=== PATIENT | male | born 1945 | race Caucasian/White ===

== ENCOUNTER 2018-03-18 10:27 | Emergency (ER) | payer MEDICARE ==
[2018-03-18] MEDS: NACL 0.9% 500 ML 500 ML IV ONE ×2 (11:37→11:46)
--- NOTE | 2018-03-18 11:39 | Emergency Department Report ---
ED Allergic Reaction HPI - General Chief complaint: Allergic Reaction Stated complaint: ALERGIC REACTION TO MEDICATION Time Seen by Provider: 03/18/18 10:36 Source: EMS Mode of arrival: Stretcher Limitations: Language Barrier - History of Present Illness Initial Comments: Mr. Yo is a 72-year-old male who presents with allergic reaction. He awakened with hives and redness in arms and legs. He had diffuse itching. He had lip swelling. +difficulty swallowing. He called EMS. He received 0.3 epinephrine subcutaneous. Also received Benadryl and Solu-Medrol. New exposures include chicken soup prepared by home fire alarm installer. He also stated the chemical was being sprayed next door and adjacent apartment. It did cause some irritation. He only drinks coffee this morning. History obtained using language line certified court/medical interpreter French [id number] Complaint: hives, facial swelling, other (throat swelling) -: This morning Exposure: food, other (chemical) Symptoms: rash, itching, facial swelling, lip swelling, difficulty swallowing, hoarseness. denies: difficulty breathing, orolingual swelling, nausea, vomiting , abdominal pain Treatment Prior to Arrival: benadryl, epinephrine, steroids - Related Data Home Medications Medication Instructions Recorded Confirmed Last Taken Cephalexin [Keflex] 500 mg PO 05/05/13 05/05/13 Unknown Clindamycin 1% (Nf) [Clindamycin 1 applic TP BID 05/05/13 05/05/13 Unknown Topical] Gabapentin 300 mg PO 05/05/13 05/05/13 Unknown Lisinopril [Zestril] 20 mg PO QDAY 05/05/13 05/05/13 Unknown Tamsulosin [Flomax] 0.4 mg PO QDAY 05/05/13 05/05/13 Unknown Triamter/Hctz 37.5-25 mg 1 tab PO QDAY 05/05/13 05/05/13 Unknown [Maxzide-25] prednisoLONE ACETATE 1%(NF) [Pred 2 drops OP 05/05/13 05/05/13 Unknown Forte] rOPINIRole [Requip] 1 mg PO QHS 05/05/13 05/05/13 Unknown Previous Rx's Medication Instructions Recorded Last Taken Type Acyclovir [Zovirax Tab] 800 mg PO QID #28 tab 05/05/13 Unknown Rx Hydrocodone Bit/Acetaminophen 1 each PO Q6H PRN #30 tablet 05/05/13 Unknown Rx [Lortab 10-500 mg] HYDROcodone/APAP 5-325 [[place] 1 - 2 each PO Q6HR PRN #14 tablet 07/23/15 Unknown Rx 5/325] EPINEPHrine [Epipen] 0.3 mg IJ ONCE #1 auto.injct 03/18/18 Unknown Rx Famotidine 20 mg PO BID 3 Days #6 tablet 03/18/18 Unknown Rx diphenhydrAMINE [Benadryl CAP] 25 mg PO TID 3 Days #9 capsule 03/18/18 Unknown Rx predniSONE [Prednisone] 50 mg PO DAILY 3 Days #3 tablet 03/18/18 Unknown Rx Allergies Allergy/AdvReac Type Severity Reaction Status Date / Time No Known Allergies Allergy Unverified 05/05/13 12:39 ED Review of Systems ROS: Stated complaint: ALERGIC REACTION TO MEDICATION Other details as noted in HPI Comment: All other systems reviewed and negative Constitutional: denies: fever, malaise Respiratory: denies: cough Cardiovascular: denies: chest pain ED Past Medical Hx - Past Medical History Hx Hypertension: Yes Additional medical history: glaucoma, COPD, peripheral neuropathy - Social History Smoking Status: Never Smoker - Medications Home Medications: Home Medications Medication Instructions Recorded Confirmed Last Taken Type Acyclovir [Zovirax Tab] 800 mg PO QID #28 tab 05/05/13 Unknown Rx Cephalexin [Keflex] 500 mg PO 05/05/13 05/05/13 Unknown History Clindamycin 1% (Nf) [Clindamycin 1 applic TP BID 05/05/13 05/05/13 Unknown History Topical] Gabapentin 300 mg PO 05/05/13 05/05/13 Unknown History Hydrocodone Bit/Acetaminophen 1 each PO Q6H PRN #30 tablet 05/05/13 Unknown Rx [Lortab 10-500 mg] Lisinopril [Zestril] 20 mg PO QDAY 05/05/13 05/05/13 Unknown History Tamsulosin [Flomax] 0.4 mg PO QDAY 05/05/13 05/05/13 Unknown History Triamter/Hctz 37.5-25 mg 1 tab PO QDAY 05/05/13 05/05/13 Unknown History [Maxzide-25] prednisoLONE ACETATE 1%(NF) [Pred 2 drops OP 05/05/13 05/05/13 Unknown History Forte] rOPINIRole [Requip] 1 mg PO QHS 05/05/13 05/05/13 Unknown History HYDROcodone/APAP 5-325 [[place] 1 - 2 each PO Q6HR PRN #14 tablet 07/23/15 Unknown Rx 5/325] EPINEPHrine [Epipen] 0.3 mg IJ ONCE #1 auto.injct 03/18/18 Unknown Rx Famotidine 20 mg PO BID 3 Days #6 tablet 03/18/18 Unknown Rx diphenhydrAMINE [Benadryl CAP] 25 mg PO TID 3 Days #9 capsule 03/18/18 Unknown Rx predniSONE [Prednisone] 50 mg PO DAILY 3 Days #3 tablet 03/18/18 Unknown Rx ED Physical Exam - General Limitations: Language Barrier General appearance: alert, anxious - Head Head exam: Present: atraumatic, normocephalic - Eye Eye exam: Present: normal appearance - ENT ENT exam: Present: mucous membranes moist - Neck Neck exam: Present: normal inspection - Respiratory Respiratory exam: Present: normal lung sounds bilaterally. Absent: respiratory distress - Cardiovascular Cardiovascular Exam: Present: regular rate, normal rhythm, normal heart sounds. Absent: bradycardia, tachycardia, systolic murmur, diastolic murmur, rubs, gallop - GI/Abdominal GI/Abdominal exam: Present: soft, normal bowel sounds. Absent: distended, tenderness, guarding, rebound - Extremities Exam Extremities exam: Present: normal inspection - Back Exam Back exam: Present: normal inspection - Neurological Exam Neurological exam: Present: alert, oriented X3 - Psychiatric Psychiatric exam: Present: normal affect, anxious - Skin Skin exam: Present: warm, dry, intact, normal color, urticaria, other. Absent: rash - Other Other exam information: Urticaria involving arms faint redness on Lasix Right lower facial swelling involving the lips Normal tongue size No stridor Normal voice ED Course Vital Signs 03/18/18 03/18/18 03/18/18 10:37 10:41 10:46 Temperature 97.4 F L Pulse Rate 121 H 60 58 L Respiratory 22 16 18 Rate Blood Pressure 91/47 91/47 O2 Sat by Pulse 97 100 Oximetry 03/18/18 03/18/18 03/18/18 11:00 11:16 11:23 Temperature Pulse Rate 55 L 55 L Respiratory 16 16 14 Rate Blood Pressure 109/48 109/48 O2 Sat by Pulse 97 100 99 Oximetry 03/18/18 03/18/18 03/18/18 11:30 12:00 12:30 Temperature Pulse Rate 61 58 L 52 L Respiratory 18 18 15 Rate Blood Pressure 116/57 116/53 110/46 O2 Sat by Pulse 100 98 98 Oximetry 03/18/18 03/18/18 03/18/18 13:00 13:30 14:00 Temperature Pulse Rate 54 L 52 L 53 L Respiratory 16 15 16 Rate Blood Pressure 111/52 94/35 94/41 O2 Sat by Pulse 98 99 98 Oximetry 03/18/18 03/18/18 03/18/18 14:30 15:00 15:30 Temperature Pulse Rate 53 L 55 L 51 L Respiratory 15 17 15 Rate Blood Pressure 87/42 92/42 90/42 O2 Sat by Pulse 97 98 99 Oximetry 03/18/18 03/18/18 16:00 16:30 Temperature Pulse Rate 51 L 59 L Respiratory 13 18 Rate Blood Pressure 92/42 90/42 O2 Sat by Pulse 100 Oximetry ED Medical Decision Making - Medical Decision Making Mr. Yo presents with anaphylaxis with facial swelling throat swelling and urticaria. Blood pressure was low according to EMS and here in ED. Symptoms resolved after epinephrine second dose and appropriate medications. Repeat BP 103/51 upon discharge. Patient is ambulatory without general weakness. I do not suspect shock. I do suspect that he has low blood pressure readings with his antihypertensive medications. I have asked him to hold blood pressure medications for the next 3 days or until he can see his primary doctor. rx: epipen, prednisone, famotidine, benadryl Patient understands to call 911 if symptoms recur. Caregiver was able to provide further French interpretation upon discharge. Critical Care Time: Yes Critical care time in (mins) excluding proc time.: 40 Critical care attestation.: If time is entered above; I have spent that time in minutes in the direct care of this critically ill patient, excluding procedure time. 40 minutes of critical care time excluding procedures were used int he care of the patient. I was concerned for airway compromise and persistent hypotension. ED Disposition Clinical Impression: Anaphylaxis Disposition: DC-01 TO HOME OR SELFCARE Is pt being admited?: No Does the pt Need Aspirin: No (5. Right IM admitted) Condition: Stable Instructions: Anaphylaxis (ED) Prescriptions: diphenhydrAMINE [Benadryl CAP] 25 mg PO TID 3 Days #9 capsule EPINEPHrine [Epipen] 0.3 mg IJ ONCE #1 auto.injct Famotidine 20 mg PO BID 3 Days #6 tablet predniSONE [Prednisone] 50 mg PO DAILY 3 Days #3 tablet Referrals: PRIMARY CARE, [Primary Care Provider] - 3-5 Days Time of Disposition: 17:35
[2018-03-18] MEDS ORDERED: PEPCID IV ONE (11:42)
[2018-03-18] MEDS ORDERED: ADRENALINE P/F SUB-Q ONE (11:42)
[2018-03-18] MEDS ORDERED: ADRENALIN ONE (12:01)
[2018-03-18] MEDS ORDERED: NACL 0.9% 500 ML 500 ML IV ONE (15:18)
[2018-03-18] MEDS ORDERED: SOLU-Medrol IV ONE (15:40)
[2018-03-18] MEDS ORDERED: BENADRYL IV ONE (15:40)
[2018-03-18 18:10] LABS: Hematocrit 46.7 % (35.5-45.6); Hemoglobin 15.7 gm/dl (11.8-15.2); Mean Corpuscular HGB Conc 34 % (32-34); Mean Corpuscular Hemoglobin 32 pg (28-32); Mean Corpuscular Volume 96 fl (84-94); Platelet Count 166 K/mm3 (140-440); Red Blood Count 4.87 M/mm3 (3.65-5.03); Red Cell Distribution Width 14.9 % (13.2-15.2)
[2018-03-18 18:23] LABS: Calcium 8.6 mg/dL (8.4-10.2)
[2018-03-18 19:28] LABS: Total Cells Counted 100
[2018-03-18 19:29] LABS: Basophils % (Manual) 0 % (0.0-1.8); Eosinophils % (Manual) 0 % (0.0-4.3); Large Platelets 1+; Platelet Estimate Consistent w Auto; RBC Morphology Normal
[2018-03-18 19:41] VITALS: BP 103/51
== END 2018-03-18 20:23 | disposition home or self-care (01) ==
LOC: ED 10:27
DX: T78.2XXA Anaphylactic shock, unspecified, initial encounter (principal); I10 Essential (primary) hypertension; J44.9 Chronic obstructive pulmonary disease, unspecified; X58.XXXA Exposure to other specified factors, initial encounter; Y93.89 Activity, other specified; Y99.8 Other external cause status; Y92.039 Unspecified place in apartment as the place of occurrence of the external cause
CPT/HCPCS: 36415; 80048; 85007; 85025; 93005; 93010; 96372; 96374; 96375; 99291; J0171; J1200; J2930; J7040

== ENCOUNTER 2019-02-08 10:50 | Inpatient (IN) | payer MEDICARE ==
[2019-02-08] MEDS ORDERED: NACL 0.9% 500 ML 500 ML IV ONE (11:13)
[2019-02-08] MEDS ORDERED: NACL 0.9% 1000 ML 1,000 ML ONE (11:16)
[2019-02-08] MEDS ORDERED: ATROPINE 0.1% (CARDIAC) ONE (11:24)
[2019-02-08] MEDS: ATROPINE IV ONE ×2 (11:27→12:16)
[2019-02-08] MEDS ORDERED: CALCIUM CHLORIDE IV ONE (11:32)
[2019-02-08] MEDS ORDERED: NACL 0.9% 1000 ML IV ONE (11:33)
--- NOTE | 2019-02-08 11:38 | Emergency Department Report ---
- General Chief complaint: Skin Rash Stated complaint: RASH Time Seen by Provider: 02/08/19 11:30 Source: EMS Mode of arrival: Ambulatory Limitations: Altered Mental Status - History of Present Illness Initial comments: 73-year-old male presents to ED with complaint of poison rome rash to his upper and lower extremities since last night. Patient reported he has had a similar rash previously, and is currently taking Singulair and topical cream prescribed to him by his regular doctor. Patient found to be hypotensive and bradycardic in triage. Patient denies any previous history of any heart problems. Denies chest pain, shortness of breath, vomiting, fever. MD complaint: rash -: Last night Location: face, LUE, RUE, LLE, RLE Severity: mild Quality: other (itching) Consistency: constant Worsens with: none Context: other (poison rome) Associated symptoms: itching Treatments Prior to Arrival: OTC topical medication - Related Data Home Medications Medication Instructions Recorded Confirmed Last Taken Triamcinolone 0.1% [Kenalog 0.1% 1 - 2 applic TP PRN PRN 02/08/19 02/08/19 02/08/19 CREAM] Allergies Allergy/AdvReac Type Severity Reaction Status Date / Time No Known Allergies Allergy Verified 03/26/18 10:35 Abscess Boil HPI - HPI Chief Complaint: Altered Mental Status Stated Complaint: RASH Time Seen by Provider: 02/08/19 11:30 Home Medications: Home Medications Medication Instructions Recorded Confirmed Last Taken Triamcinolone 0.1% [Kenalog 0.1% 1 - 2 applic TP PRN PRN 02/08/19 02/08/19 02/08/19 CREAM] Allergies/Adverse Reactions: Allergies Allergy/AdvReac Type Severity Reaction Status Date / Time No Known Allergies Allergy Verified 03/26/18 10:35 ED Review of Systems ROS: Stated complaint: RASH Other details as noted in HPI Comment: All other systems reviewed and negative Constitutional: denies: chills, fever Respiratory: cough. denies: shortness of breath Cardiovascular: denies: chest pain Gastrointestinal: constipation. denies: abdominal pain, vomiting, diarrhea Skin: rash Neurological: weakness (generalized). denies: headache ED Past Medical Hx - Past Medical History Hx Hypertension: Yes Additional medical history: glaucoma, COPD, peripheral neuropathy - Surgical History Additional Surgical History: back surgery - Social History Smoking Status: Former Smoker Substance Use Type: None - Medications Home Medications: Home Medications Medication Instructions Recorded Confirmed Last Taken Type Triamcinolone 0.1% [Kenalog 0.1% 1 - 2 applic TP PRN PRN 02/08/19 02/08/19 02/08/19 History CREAM] ED Physical Exam - General Limitations: Altered Mental Status General appearance: alert, in no apparent distress - Head Head exam: Present: atraumatic, normocephalic - Eye Eye exam: Present: normal appearance, PERRL, EOMI - ENT ENT exam: Present: mucous membranes moist - Neck Neck exam: Present: normal inspection - Respiratory Respiratory exam: Present: normal lung sounds bilaterally. Absent: respiratory distress - Cardiovascular Cardiovascular Exam: Present: normal rhythm, bradycardia - GI/Abdominal GI/Abdominal exam: Present: soft. Absent: distended, tenderness - Extremities Exam Extremities exam: Present: normal inspection, full ROM - Neurological Exam Neurological exam: Present: alert, oriented X3, CN II-XII intact. Absent: motor sensory deficit - Psychiatric Psychiatric exam: Present: normal affect, normal mood - Skin Skin exam: Present: rash (urticarial rash to left forearm, bilateral thighs) ED Course Vital Signs 02/08/19 02/08/19 02/08/19 10:55 11:12 11:16 Temperature Pulse Rate 42 L Respiratory 37 H 11 L 14 Rate Blood Pressure 89/35 Blood Pressure 68/37 [Right] O2 Sat by Pulse 100 99 Oximetry 02/08/19 02/08/19 02/08/19 11:20 11:30 11:34 Temperature 97.3 F L Pulse Rate 34 L 66 70 Respiratory 20 10 L 16 Rate Blood Pressure Blood Pressure 89/38 206/95 [Right] O2 Sat by Pulse 100 100 100 Oximetry 02/08/19 02/08/19 11:47 12:28 Temperature 97.3 F L Pulse Rate 57 L Respiratory 16 Rate Blood Pressure Blood Pressure 232/97 [Right] O2 Sat by Pulse 100 Oximetry - Reevaluation(s) Reevaluation #1: 02/08/19 11:35 Pt presented to ED by EMS w/ complaint of poison rome rash. EMS reported normal vitals. Pt found to be hypotensive and bradycardic w/ HR ranging from 29 -40. Pt denies chest pain, cardiac, or renal issues. However, EKG shows peaked T waves ans sinus bradycardia. Given pt's bradycardia and hypotension, 1 amp of calcium and 1 mg atropine were given. HR improved to 60s, SBP improved to 140s. ED Medical Decision Making - Lab Data Result diagrams: 02/08/19 11:23 02/08/19 11:23 - EKG Data -: EKG Interpreted by Me EKG shows normal: sinus rhythm, axis, intervals, QRS complexes, ST-T waves Rate: bradycardia (rate 46) - EKG Data Interpretation: other (peaked T waves present) - Radiology Data Radiology results: report reviewed, image reviewed - Medical Decision Making 73-year-old male presented to ED with complaint of rash due to poison rome. Patient was found to be hypotensive, BP 60s/30s, and bradycardic with heart rate in the 30s, although it did get as low as 27. Initial EKG appeared to have peaked T waves, atropine and calcium chloride were given. However, patient has potassium of 4.4 in the blood work. I was later able to compare today's EKG to previous EKG from last year, EKG is unchanged, including T wave appearance. Patient will be admitted for symptomatic bradycardia. Troponin is normal. Patient also does not appear to be septic, as he is afebrile, normal WBCs, and normal lactic acid. The pressure has normalized and actually become hypertensive with IV fluid bolus and Atropine. Hydralazine 5 mg given for BP of 232/97. Pt will be admitted to the hospitalist, Dr Jin, for further workup. - Differential Diagnosis symptomatic bradycardia, anaphylaxis, sick sinus sydrome, sepsis Critical Care Time: Yes Critical care time in (mins) excluding proc time.: 35 Critical care attestation.: If time is entered above; I have spent that time in minutes in the direct care of this critically ill patient, excluding procedure time. Critical Care Time: 35 minutes ED Disposition Clinical Impression: Hypotension, Bradycardia, Urticaria Disposition: OP ADMIT IP TO THIS HOSP Is pt being admited?: Yes Condition: Stable Referrals: PRIMARY CARE,MD [Primary Care Provider] - 3-5 Days Time of Disposition: 12:31
[2019-02-08 11:39] LABS: Basophils % (Auto) 0.7 % (0.0-1.8); Eosinophils # (Auto) 0.2 K/mm3 (0.0-0.4); Eosinophils % (Auto) 4.5 % (0.0-4.3); Hematocrit 40.3 % (35.5-45.6); Hemoglobin 13.6 gm/dl (11.8-15.2); Lymphocytes # (Auto) 0.9 K/mm3 (1.2-5.4); Lymphocytes % (Auto) 22.7 % (13.4-35.0); Mean Corpuscular HGB Conc 34 % (32-34); Mean Corpuscular Volume 98 fl (84-94); Monocytes # (Auto) 0.5 K/mm3 (0.0-0.8); Monocytes % (Auto) 12.4 % (0.0-7.3); Platelet Count 106 K/mm3 (140-440); Red Blood Count 4.13 M/mm3 (3.65-5.03); Red Cell Distribution Width 13.8 % (13.2-15.2)
[2019-02-08 11:49] LABS: INR 1.29 (0.87-1.13)
[2019-02-08 11:56] LABS: Alanine Aminotransferase 272 units/L (7-56); BUN/Creatinine Ratio 15; Blood Urea Nitrogen 15 mg/dL (9-20); Hemolysis Index 3
[2019-02-08 12:03] LABS: Calcium 15.8 mg/dL (8.4-10.2)
[2019-02-08] MEDS ORDERED: BENADRYL IV ONE (12:11)
[2019-02-08] MEDS ORDERED: ATROPINE 0.1% (CARDIAC) IV ONE (12:14)
[2019-02-08] MEDS ORDERED: SOLU-Medrol IV ONE (12:19)
--- NOTE | 2019-02-08 12:23 | XRay Report ---
CHEST 1 VIEW 02/08/2019 11:30 AM INDICATION / CLINICAL INFORMATION: possible Sepsis. COMPARISON: None available. FINDINGS: SUPPORT DEVICES: None. HEART / MEDIASTINUM: Normal heart size. Atherosclerosis in the thoracic aorta. LUNGS / PLEURA: No significant pulmonary or pleural abnormality. No pneumothorax. ADDITIONAL FINDINGS: No significant additional findings. IMPRESSION: 1. No acute findings. Signer Name: Misbah Ibrahim MD Signed: 02/08/2019 12:18 PM Workstation Name: [id number]
[2019-02-08] MEDS ORDERED: APRESOLINE IV ONE (12:31)
--- NOTE | 2019-02-08 12:37 | History and Physical Report ---
History of Present Illness Chief complaint: I have a rash History of present illness: 73 YO Male with HTN, COPD, Glaucoma, Peripheral Neuropathy, Severe Malnutrition presents to ED for evaluation. Pt states that he has experienced a rash to his arms and legs that began last night. Pt treated himself with topical cream overnight with mild improvement in symptoms. Pt was found to by family members to have low blood pressure this morning. EMS notified, and upon arrival the patient was found to be hypotensive with systolic blood pressure of 68 mmhg, as well as bradycardia with heart rate in the 40's. Pt transported to [facility]. Pt seen and evaluated in ED and found to have the aforementioned symptoms as was treated with Atropine by ED physician. Pt symptoms improved with therapy. Pt acknowledges dypsnea on exertion, dypsnea at rest, decreased exercise tolerance. Pt denies fever, chills, CP, Palpitations, NVD, shortness of breath, BRBPR, Productive cough, recent ill contacts, or known history of heart disease. Pt found to have symptoms consistent with Diastolic CHF, Severe Malnutrition, Hypercalcemia, and Sick Sinus Syndrome. Pt admitted to telemetry. Cardiology consulted in ED. No prior admission for review. All listed medication reconciled at time of admission. Past History Past Medical History: COPD, hypertension, other (Glaucoma, Peripheral neuropathy) Past Surgical History: No surgical history, Other (reviewed) Social history: single, lives with family. denies: smoking, alcohol abuse, prescription drug abuse Family history: hypertension Medications and Allergies Allergies Allergy/AdvReac Type Severity Reaction Status Date / Time No Known Allergies Allergy Verified 03/26/18 10:35 Home Medications Medication Instructions Recorded Confirmed Last Taken Type Triamcinolone 0.1% [Kenalog 0.1% 1 - 2 applic TP PRN PRN 02/08/19 02/08/19 02/08/19 History CREAM] Review of Systems Constitutional: no weight loss, no weight gain, no fever, no chills Ears, nose, mouth and throat: no ear pain, no ear discharge, no tinnitis, no decreased hearing, no nose pain Cardiovascular: dyspnea on exertion, decreased exercise tolerance, other (Hypotension, bradycardia), no chest pain, no orthopnea, no palpitations, no syncope Respiratory: no cough, no cough with sputum, no excessive sputum, no hemoptysis Gastrointestinal: no nausea, no vomiting, no diarrhea, no constipation Genitourinary Male: no hematuria, no flank pain, no discharge, no urinary frequency, no urinary hesitancy Rectal: no pain, no incontinence, no bleeding Musculoskeletal: no neck stiffness, no neck pain, no shooting arm pain, no arm numbness/tingling, no low back pain, no shooting leg pain, no leg numbness/t ingling Integumentary: rash, pruritis, no redness, no sores, no wounds Neurological: no transient paralysis, no paralysis, no weakness, no parathesias, no numbness, no tingling Psychiatric: no anxiety, no memory loss, no change in sleep habits, no sleep disturbances, no insomnia, no change in appetite, no change in libido Endocrine: no cold intolerance, no heat intolerance, no polyphagia, no excessive thirst, no polydipsia Hematologic/Lymphatic: no easy bruising, no easy bleeding, no lymphadenopathy Allergic/Immunologic: no allergic rhinitis, no wheezing, no anaphylaxis Exam - Constitutional Vitals: Temp Pulse Resp BP Pulse Ox 97.3 F L 61 16 232/98 100 02/08/19 11:47 02/08/19 12:34 02/08/19 12:28 02/08/19 12:34 02/08/19 12:28 General appearance: Present: mild distress, cachectic - EENT Eyes: Present: PERRL ENT: hearing intact, clear oral mucosa - Neck Neck: Present: supple, normal ROM - Respiratory Respiratory effort: normal Respiratory: bilateral: CTA - Cardiovascular Rhythm: other (bradycardia) Heart Sounds: Present: S1 & S2. Absent: rub, click - Extremities Extremities: pulses symmetrical, No edema Peripheral Pulses: within normal limits - Abdominal General gastrointestinal: Present: soft, non-tender, non-distended, normal bowel sounds Male genitourinary: Present: normal - Integumentary Integumentary: Present: clear, warm, dry - Musculoskeletal Musculoskeletal: gait normal, strength equal bilaterally - Psychiatric Psychiatric: appropriate mood/affect, intact judgment & insight - Neurologic Neurologic: CNII-XII intact, moves all extremities Results - Labs CBC & Chem 7: 02/08/19 11:23 02/08/19 11:23 Labs: Abnormal lab results 02/08/19 02/08/19 02/08/19 Range/Units 11:23 11:23 11:23 WBC 3.8 L (4.5-11.0) K/mm3 MCV 98 H (84-94) fl MCH 33 H (28-32) pg Plt Count 106 L (140-440) K/mm3 Tillman % (Auto) 12.4 H (0.0-7.3) % Eos % (Auto) 4.5 H (0.0-4.3) % Lymph # 0.9 L (1.2-5.4) K/mm3 PT 15.8 H (12.2-14.9) Sec. INR 1.29 H (0.87-1.13) Chloride 112.5 H (98-107) mmol/L Glucose 103 H (75-100) mg/dL Calcium 15.8 H* (8.4-10.2) mg/dL AST 255 H (5-40) units/L ALT 272 H (7-56) units/L Total Protein 5.8 L (6.3-8.2) g/dL Albumin 3.0 L (3.9-5) g/dL Assessment and Plan - Patient Problems (1) Diastolic CHF Current Visit: Yes Status: Acute Qualifiers: Heart failure chronicity: acute Qualified Code(s): I50.31 - Acute diastolic (congestive) heart failure Plan to address problem: admit to telemetry, Echo, BNP, thyroid panel, magnesium level, cardiology consulted in ED, supplemental oxygen, chest x ray, (2) Severe malnutrition Current Visit: Yes Status: Acute Plan to address problem: Encourage increased protein intake, dietary supplementation. (3) Sick sinus syndrome Current Visit: Yes Status: Acute Plan to address problem: Cardiology consulted, thyroid panel, echo, telemetry monitoring, (4) Elevated LFTs Current Visit: Yes Status: Acute Plan to address problem: CT Abdomen/Pelvis, supportive care, hepatitis panel (5) Bradycardia Current Visit: Yes Status: Acute Plan to address problem: S/P atropine in ED, supportive care, admit to telemetry, (6) Hypotension Current Visit: Yes Status: Acute Plan to address problem: monitor bp q shift, supportive care. (7) Urticaria Current Visit: Yes Status: Acute Plan to address problem: topical benadryl, supportive care (8) DVT prophylaxis Current Visit: Yes Status: Acute Plan to address problem: SCD to BLE while in bed,
[2019-02-08] MEDS ORDERED: ZOFRAN IV PRN (13:48)
[2019-02-08] MEDS ORDERED: TYLENOL PO PRN (13:48)
[2019-02-08] MEDS ORDERED: PROVENTIL IH PRN (13:48)
[2019-02-08] MEDS ORDERED: SODIUM CHLORIDE FLUSH SYRINGE 10 ML IV PRN (13:48)
[2019-02-08 13:52] LABS: Bilirubin,Urine NEG (Negative); Blood,Urine SM (Negative); Color,Urine Straw (Yellow); Protein,Urine <15 mg/dL mg/dL (Negative); Urobilinogen,Urine < 2.0 mg/dL (<2.0)
[2019-02-08] MEDS ORDERED: BANOPHEN ANTI-ITCH TP PRN (13:52)
[2019-02-08 14:55] LABS: Free T4 (Free Thyroxine) 1.27 ng/dL (0.76-1.46)
--- NOTE | 2019-02-08 19:33 | Cat Scan Report ---
CT ABDOMEN AND PELVIS WITH CONTRAST INDICATION: liver disease. TECHNIQUE: Axial CT images were obtained through the abdomen and pelvis after 100 cc Omnipaque [address] scans at this location are performed using CT dose reduction for ALARA by means of automated exposure control. COMPARISON: None available. FINDINGS: This exam is limited secondary to moderate amount of respiratory motion artifact. LOWER CHEST: Heart is mildly enlarged. LIVER: No significant abnormality. GALLBLADDER: No significant abnormality. BILE DUCTS: No significant abnormality. PANCREAS: No significant abnormality. SPLEEN: No significant abnormality. ADRENALS: No significant abnormality. RIGHT KIDNEY and URETER: No significant abnormality. LEFT KIDNEY and URETER: No significant abnormality. STOMACH and SMALL BOWEL: No significant abnormality. COLON: No significant abnormality. APPENDIX: No significant abnormality. PERITONEUM: Trace amount of free pelvic fluid. No free air. No fluid collection. LYMPH NODES: No significant adenopathy. AORTA and ARTERIES: No significant abnormality. IVC and VEINS: No significant abnormality. URINARY BLADDER: Collapsed containing Galindo catheter. REPRODUCTIVE ORGANS: Enlarged heterogeneous prostate measuring 4.8 cm transversely. ADDITIONAL FINDINGS: None. SKELETAL SYSTEM: Moderate multilevel degenerative changes extending from L3 through S1. IMPRESSION: 1. No acute inflammatory process or bowel obstruction. 2. Enlarged heterogeneous prostate. Signer Name: Brian Kennedy MD Signed: 02/08/2019 7:29 PM Workstation Name: [email or web address]
[2019-02-08 22:08] LABS: Hepatitis B Surface Antigen Reactive (Negative); Hepatitis C Virus Antibody Non-Reactive (NonReactive)
[2019-02-08] MEDS: PEPCID PO SCH (22:16)
[2019-02-08] MEDS: SODIUM CHLORIDE FLUSH SYRINGE 10 ML IV SCH (22:25)
[2019-02-09 05:50] LABS: Albumin 3.3 g/dL (3.9-5); BUN/Creatinine Ratio 21; Blood Urea Nitrogen 17 mg/dL (9-20); Calcium 8.7 mg/dL (8.4-10.2); Hemolysis Index 107
[2019-02-09 07:19] LABS: Alanine Aminotransferase 275 units/L (7-56)
[2019-02-09] MEDS: PEPCID PO SCH ×2 (09:46→21:51)
[2019-02-09] MEDS: NACL 0.9% 1000 ML 1,000 ML IV SCH (09:47)
[2019-02-09] MEDS: SODIUM CHLORIDE FLUSH SYRINGE 10 ML IV SCH ×2 (09:47→21:51)
--- NOTE | 2019-02-09 11:19 | Consultation ---
History of Present Illness Consult date: 02/09/19 Consult reason: bradycardia History of present illness: This is a 73-year old [place] male with chronic hypertension who was brought in with altered mental status, found hypotensive and with marked bradycardia. Unable to obtain history due to language barrier. An ECG done shows sinus bradycardia with LVH and early repolarization. TSH is within normal limits. Potassium at 4.4. Home medication list the patient takes Clonidine 0.2mg twice daily. This has since been held. A cardiac consultation has been requested for further evaluation. Past History Social history: single, lives with family. denies: smoking, alcohol abuse, prescription drug abuse Family history: hypertension Medications and Allergies Allergies Allergy/AdvReac Type Severity Reaction Status Date / Time No Known Allergies Allergy Verified 03/26/18 10:35 Home Medications Medication Instructions Recorded Confirmed Last Taken Type Triamcinolone 0.1% [Kenalog 0.1% 1 - 2 applic TP PRN PRN 02/08/19 02/08/19 02/08/19 History CREAM] Spironolactone 0.2 mg PO BID 02/09/19 02/09/19 02/08/19 08:00 History cloNIDine 0.2 mg PO BID 02/09/19 02/09/19 02/08/19 08:00 History Active Meds: Active Medications Acetaminophen (Tylenol) 650 mg PO Q4H PRN PRN Reason: Pain MILD(1-3)/Fever >100.5/IRBY Albuterol (Proventil) 2.5 mg IH Q4HRT PRN PRN Reason: Shortness Of Breath Famotidine (Pepcid) 10 mg PO BID [facility] Last Admin: 02/09/19 09:46 Dose: 10 mg Documented by: Sodium Chloride (Nacl 0.9% 1000 Ml) 1,000 mls @ 42 mls/hr IV DIRECT [facility] Last Admin: 02/09/19 09:47 Dose: 42 mls/hr Documented by: Ondansetron HCl (Zofran) 4 mg IV Q8H PRN PRN Reason: Nausea And Vomiting Sodium Chloride (Sodium Chloride Flush Syringe 10 Ml) 10 ml IV BID [facility] Last Admin: 02/09/19 09:47 Dose: 10 ml Documented by: Sodium Chloride (Sodium Chloride Flush Syringe 10 Ml) 10 ml IV PRN PRN PRN Reason: LINE FLUSH Last Admin: 02/08/19 22:16 Dose: 10 ml Documented by: Zinc Acetate/Diphenhydramine (Banophen Anti-Itch) 1 applic TP Q6H PRN PRN Reason: Itching Physical Examination Vital Signs Pulse Resp BP Pulse Ox 42 L 37 H 68/37 100 02/08/19 10:55 02/08/19 10:55 02/08/19 10:55 02/08/19 10:55 General appearance: no acute distress HEENT: Positive: PERRL Neck: Positive: trachea midline Cardiac: Positive: Bradycardia Lungs: Positive: Normal Breath Sounds Neuro: Positive: Grossly Intact Abdomen: Positive: Soft Extremities: Absent: edema Results 02/08/19 11:23 02/09/19 04:36 Cardiac Enzymes 02/08/19 02/09/19 Range/Units 11:23 04:36 AST 255 H 212 H (5-40) units/L Coagulation 02/08/19 Range/Units 11:23 PT 15.8 H (12.2-14.9) Sec. INR 1.29 H (0.87-1.13) CBC 02/08/19 Range/Units 11:23 WBC 3.8 L (4.5-11.0) K/mm3 RBC 4.13 (3.65-5.03) M/mm3 Hgb 13.6 (11.8-15.2) gm/dl Hct 40.3 (35.5-45.6) % Plt Count 106 L (140-440) K/mm3 Lymph # 0.9 L (1.2-5.4) K/mm3 [place]ue # 0.5 (0.0-0.8) K/mm3 Eos # 0.2 (0.0-0.4) K/mm3 Baso # 0.0 (0.0-0.1) K/mm3 Comprehensive Metabolic Panel 02/08/19 02/09/19 Range/Units 11:23 04:36 Sodium 138 133 L (137-145) mmol/L Potassium 4.4 4.7 (3.6-5.0) mmol/L Chloride 112.5 H 104.9 (98-107) mmol/L Carbon Dioxide 24 17 L D (22-30) mmol/L BUN 15 17 (9-20) mg/dL Creatinine 1.0 0.8 (0.8-1.5) mg/dL Glucose 103 H 122 H (75-100) mg/dL Calcium 15.8 H* 8.7 D (8.4-10.2) mg/dL AST 255 H 212 H (5-40) units/L ALT 272 H 275 H (7-56) units/L Alkaline Phosphatase 62 74 (35-129) units/L Total Protein 5.8 L 7.0 D (6.3-8.2) g/dL Albumin 3.0 L 3.3 L (3.9-5) g/dL Assessment and Plan Hypotension -resolved, now hypertensive Marked Sinus bradycardia TSH WNL clonidine 0.2mg has been discontinued Recommendations: Optimal blood pressure management with HCTZ 25mg daily. Echocardiogram for LVEF assessment. Continue telemetry monitoring. Further evaluation depends on clinical course.
--- NOTE | 2019-02-09 16:33 | Progress Note ---
Assessment and Plan Assessment and plan: 73 yr old male patient with multiple medical problems was found to by family members to have low blood pressure this morning. EMS notified, and upon arrival the patient was found to be hypotensive with systolic blood pressure of 68 mmhg, as well as bradycardia with heart rate in the 40's. Pt seen and evaluated in ED and found to have the aforementioned symptoms as was treated with Atropine by ED physician. Pt symptoms improved with therapy. Pt acknowledges dypsnea on exertion, dypsnea at rest, decreased exercise Evaluated by cardiology (1) Diastolic CHF Current Visit: Yes Status: Acute continue antifailure medications Cardiology evaln noted and appreciated (2) Severe malnutrition Current Visit: Yes Status: Acute Encourage increased protein intake, dietary supplementation. supportive care (3) Sick sinus syndrome Current Visit: Yes Status: Acute Cardiology consulted, thyroid panel normal f/u echo, telemetry monitoring, (4) Elevated LFTs Current Visit: Yes Status: Acute Plan to address problem: CT Abdomen/Pelvis,enlarged prostate no other abnormality noted (5) Bradycardia Current Visit: Yes Status: Acute Plan to address problem: S/P atropine in ED, supportive care, admit to telemetry, (6) Hypotension Current Visit: Yes Status: Acute Plan to address problem: monitor bp q shift, supportive care. (7) Urticaria Current Visit: Yes Status: Acute Plan to address problem: topical benadryl, supportive care (8) DVT prophylaxis Current Visit: Yes Status: Acute Plan to address problem: SCD to BLE while in bed, Monitor closely and adjust the management as needed Disposition: Discharge when stable History Interval history: Patient seen and examined,medical records reviewed Patient c/o mild shortness of breath Denies chest pain Vitals reviewed Hospitalist Physical - Constitutional Vitals: Temp Pulse Resp BP Pulse Ox 97.7 F 64 16 183/53 100 02/09/19 08:23 02/09/19 12:18 02/09/19 12:18 02/09/19 12:18 02/09/19 12:18 General appearance: Present: no acute distress, cachectic, disheveled - EENT Eyes: Present: PERRL, EOM intact - Neck Neck: Present: supple, normal ROM - Respiratory Respiratory effort: normal Respiratory: bilateral: diminished, rales, negative: rhonchi, wheezing - Cardiovascular Rhythm: regular Heart Sounds: Present: S1 & S2 - Extremities Extremities: no ischemia, No edema - Abdominal General gastrointestinal: soft, non-tender, non-distended, normal bowel sounds - Integumentary Integumentary: Present: clear, warm - Psychiatric Psychiatric: appropriate mood/affect, cooperative - Neurologic Neurologic: moves all extremities Results - Labs CBC & Chem 7: 02/08/19 11:23 02/09/19 04:36 Labs: Laboratory Last Values WBC 3.8 K/mm3 (4.5-11.0) L 02/08/19 11:23 RBC 4.13 M/mm3 (3.65-5.03) 02/08/19 11:23 Hgb 13.6 gm/dl (11.8-15.2) 02/08/19 11:23 Hct 40.3 % (35.5-45.6) 02/08/19 11:23 MCV 98 fl (84-94) H 02/08/19 11:23 MCH 33 pg (28-32) H 02/08/19 11:23 MCHC 34 % (32-34) 02/08/19 11:23 RDW 13.8 % (13.2-15.2) 02/08/19 11:23 Plt Count 106 K/mm3 (140-440) L 02/08/19 11:23 Lymph % (Auto) 22.7 % (13.4-35.0) 02/08/19 11:23 [place] % (Auto) 12.4 % (0.0-7.3) H 02/08/19 11:23 Eos % (Auto) 4.5 % (0.0-4.3) H 02/08/19 11:23 Baso % (Auto) 0.7 % (0.0-1.8) 02/08/19 11:23 Lymph # 0.9 K/mm3 (1.2-5.4) L 02/08/19 11:23 [place] # 0.5 K/mm3 (0.0-0.8) 02/08/19 11:23 Eos # 0.2 K/mm3 (0.0-0.4) 02/08/19 11:23 Baso # 0.0 K/mm3 (0.0-0.1) 02/08/19 11:23 Seg Neutrophils % 59.7 % (40.0-70.0) 02/08/19 11:23 Seg Neutrophils # 2.3 K/mm3 (1.8-7.7) 02/08/19 11:23 PT 15.8 Sec. (12.2-14.9) H 02/08/19 11:23 INR 1.29 (0.87-1.13) H 02/08/19 11:23 VBG pH 7.355 (7.320-7.420) 02/08/19 11:23 Sodium 133 mmol/L (137-145) L 02/09/19 04:36 Potassium 4.7 mmol/L (3.6-5.0) 02/09/19 04:36 Chloride 104.9 mmol/L (98-107) 02/09/19 04:36 Carbon Dioxide 17 mmol/L (22-30) L D 02/09/19 04:36 16 mmol/L 02/09/19 04:36 BUN 17 mg/dL (9-20) 02/09/19 04:36 0.8 mg/dL (0.8-1.5) 02/09/19 04:36 Estimated GFR > 60 ml/min 02/09/19 04:36 21 % 02/09/19 04:36 Glucose 122 mg/dL (75-100) H 02/09/19 04:36 POC Glucose 101 (70-105) 02/08/19 11:10 Lactic Acid 1.60 mmol/L (0.7-2.0) 02/08/19 13:57 Calcium 8.7 mg/dL (8.4-10.2) D 02/09/19 04:36 Magnesium 1.80 mg/dL (1.7-2.3) 02/08/19 13:57 0.70 mg/dL (0.1-1.2) 02/09/19 04:36 AST 212 units/L (5-40) H 02/09/19 04:36 ALT 275 units/L (7-56) H 02/09/19 04:36 74 units/L (35-129) 02/09/19 04:36 < 0.010 ng/mL (0.00-0.029) 02/08/19 21:03 NT-Pro-B Natriuret Pep 77.44 pg/mL (0-900) 02/08/19 11:23 7.0 g/dL (6.3-8.2) D 02/09/19 04:36 3.3 g/dL (3.9-5) L 02/09/19 04:36 0.9 % 02/09/19 04:36 TSH 1.010 mlU/mL (0.270-4.200) 02/08/19 13:57 Free T4 1.27 ng/dL (0.76-1.46) 02/08/19 13:57 Straw (Yellow) 02/08/19 12:55 Clear (Clear) 02/08/19 12:55 7.0 (5.0-7.0) 02/08/19 12:55 Ur Specific [place] 1.005 (1.003-1.030) 02/08/19 12:55 <15 mg/dl mg/dL (Negative) 02/08/19 12:55 50 mg/dL (Negative) 02/08/19 12:55 Neg mg/dL (Negative) 02/08/19 12:55 Sm (Negative) 02/08/19 12:55 Neg (Negative) 02/08/19 12:55 Neg (Negative) 02/08/19 12:55 < 2.0 mg/dL (<2.0) 02/08/19 12:55 Ur Leukocyte Esterase Neg (Negative) 02/08/19 12:55 1.0 /HPF (0.0-6.0) 02/08/19 12:55 13.0 /HPF (0.0-6.0) 02/08/19 12:55 Plasma/Serum Alcohol < 0.01 % (0-0.07) 02/08/19 12:41 Hepatitis A IgM Ab Non-reactive (NonReactive) 02/08/19 21:03 Hep Bs Antigen Reactive (Negative) 02/08/19 21:03 Hep B Core IgM Ab Non-reactive (NonReactive) 02/08/19 21:03 Non-reactive (NonReactive) 02/08/19 21:03 Active Medications - Current Medications Current Medications: Generic Name Dose Route Start Last Admin Trade Name Freq PRN Reason Stop Dose Admin Acetaminophen 650 mg 02/08/19 13:48 Tylenol PO Q4H PRN Pain MILD(1-3)/Fever >100.5/IRBY Albuterol 2.5 mg 07/23/19 13:48 Proventil IH Q4HRT PRN Shortness Of Breath Famotidine 10 mg 02/08/19 22:00 02/09/19 09:46 Pepcid PO 10 mg BID NOEMI Administration Hydrochlorothiazide 25 mg 02/09/19 12:00 Hctz PO QDAY NOEMI Sodium Chloride 1,000 mls @ 42 mls/hr 02/08/19 14:00 02/09/19 09:47 Nacl 0.9% 1000 Ml IV 42 mls/hr DIRECT NOEMI Administration Ondansetron HCl 4 mg 02/08/19 13:48 Zofran IV Q8H PRN Nausea And Vomiting Sodium Chloride 10 ml 02/08/19 22:00 02/09/19 09:47 Sodium Chloride Flush Syringe 10 Ml IV 10 ml BID NOEMI Administration Sodium Chloride 10 ml 02/08/19 13:48 02/08/19 22:16 Sodium Chloride Flush Syringe 10 Ml IV 10 ml PRN PRN Administration LINE FLUSH Zinc Acetate/Diphenhydramine 1 applic 02/08/19 13:52 Banophen Anti-Itch TP Q6H PRN Itching
[2019-02-09] MEDS: HCTZ PO SCH (17:14)
[2019-02-10 06:02] LABS: BUN/Creatinine Ratio 28; Blood Urea Nitrogen 25 mg/dL (9-20); Calcium 8.9 mg/dL (8.4-10.2); Hemolysis Index 38
[2019-02-10] MEDS: SODIUM CHLORIDE FLUSH SYRINGE 10 ML IV SCH ×2 (09:48→21:58)
[2019-02-10] MEDS: HCTZ PO SCH (09:48)
[2019-02-10] MEDS: PEPCID PO SCH ×2 (09:48→21:56)
[2019-02-10] MEDS: NACL 0.9% 1000 ML 1,000 ML IV SCH (09:54)
--- NOTE | 2019-02-10 10:37 | Progress Note ---
Assessment and Plan Hypotension -resolved, now hypertensive Marked Sinus bradycardia TSH WNL clonidine 0.2mg has been discontinued Recommendations: Optimal blood pressure management. Echocardiogram for LVEF assessment. Continue telemetry monitoring. Further evaluation depends on clinical course. Subjective Date of service: 02/10/19 Interval history: Patient has no complaints Heart rate ranging from mid 30s to low 50s. No sinus pauses reported. Objective Vital Signs Temp Pulse Resp BP Pulse Ox 02/10/19 07:39 98.6 F 47 L 18 189/60 100 02/10/19 03:43 98.1 F 46 L 18 167/61 100 02/10/19 03:15 46 L 02/09/19 23:13 98.4 F 50 L 18 153/57 100 02/09/19 19:40 98.4 F 49 L 20 145/42 02/09/19 19:38 49 L 02/09/19 16:58 98.2 F 49 L 14 152/51 02/09/19 12:18 64 16 183/53 02/09/19 11:00 39 L - Physical Examination HEENT: Positive: PERRL Neck: Positive: trachea midline Cardiac: Positive: Bradycardia Lungs: Positive: Normal Breath Sounds Neuro: Positive: Grossly Intact Abdomen: Positive: Soft Extremities: Absent: edema - Labs and Meds Comprehensive Metabolic Panel 02/10/19 Range/Units 04:35 Sodium 141 D (137-145) mmol/L Potassium 4.1 (3.6-5.0) mmol/L Chloride 105.8 (98-107) mmol/L Carbon Dioxide 21 L (22-30) mmol/L BUN 25 H (9-20) mg/dL Creatinine 0.9 (0.8-1.5) mg/dL Glucose 96 (75-100) mg/dL Calcium 8.9 (8.4-10.2) mg/dL
--- NOTE | 2019-02-10 15:28 | Progress Note ---
Assessment and Plan 73 yr old male patient with multiple medical problems was found to by family members to have low blood pressure this morning. EMS notified, and upon arrival the patient was found to be hypotensive with systolic blood pressure of 68 mmhg, as well as bradycardia with heart rate in the 40's. Pt seen and evaluated in ED and found to have the aforementioned symptoms as was treated with Atropine by ED physician. Pt symptoms improved with therapy. Pt acknowledges dypsnea on exertion, dypsnea at rest, decreased exercise, Evaluated by cardiology. (1) Diastolic CHF Preserved EF on 2d echo continue antifailure medications Cardiology eval noted and appreciated (2) Severe malnutrition Encourage increased protein intake, dietary supplementation. supportive care (3) Sick sinus syndrome Cardiology consulted, thyroid panel normal f/u echo, telemetry monitoring, stop clonidine (4) Elevated LFTs CT Abdomen/Pelvis showed enlarged prostate no other abnormality noted (5) Bradycardia S/P atropine in ED, supportive care, admit to telemetry, off clonidine (6) Hypotension, resolved (7) Urticaria topical benadryl, supportive care (8) HTN, elevated, start norvasc and hydralazine (9) DVT prophylaxis SCD to BLE while in bed, Monitor closely and adjust the management as needed Disposition: Discharge when stable Hospitalist Physical General appearance: Present: no acute distress, cachectic, disheveled - EENT Eyes: Present: PERRL, EOM intact - Neck Neck: Present: supple, normal ROM - Respiratory Respiratory effort: normal Respiratory: bilateral: diminished, rales, negative: rhonchi, wheezing - Cardiovascular Rhythm: regular Heart Sounds: Present: S1 & S2 - Extremities Extremities: no ischemia, No edema - Abdominal General gastrointestinal: soft, non-tender, non-distended, normal bowel sounds - Integumentary Integumentary: Present: clear, warm - Psychiatric Psychiatric: appropriate mood/affect, cooperative - Neurologic Neurologic: moves all extremities Subjective Date of service: 02/10/19 Interval history: Patient seen and examined BP remained elevated denies chest pain or SOB Objective - Constitutional Vitals: Vital Signs - 12hr 02/10/19 02/10/19 02/10/19 03:43 07:39 10:45 Temperature 98.1 F 98.6 F Pulse Rate 46 L 47 L Respiratory 18 18 Rate Blood Pressure 167/61 189/60 O2 Sat by Pulse 100 100 99 Oximetry 02/10/19 11:14 Temperature 98.0 F Pulse Rate 49 L Respiratory 18 Rate Blood Pressure 182/70 O2 Sat by Pulse 100 Oximetry - Labs CBC & Chem 7: 02/08/19 11:23 02/10/19 04:35 Labs: Abnormal lab results 02/10/19 Range/Units 04:35 Carbon Dioxide 21 L (22-30) mmol/L BUN 25 H (9-20) mg/dL
[2019-02-10] MEDS: NORVASC PO SCH (15:34)
[2019-02-10] MEDS: APRESOLINE PO SCH (21:56)
[2019-02-11] MEDS: APRESOLINE PO SCH (05:57)
[2019-02-11] MEDS: PEPCID PO SCH ×2 (09:45→21:31)
[2019-02-11] MEDS ORDERED: VISTARIL PO PRN (11:00)
[2019-02-11] MEDS ORDERED: NON-FORMULARY (Singulair 10 MG) PO SCH (12:30)
--- NOTE | 2019-02-11 13:51 | Discharge Summary ---
Providers - Providers Date of Admission: 02/08/19 13:48 Date of discharge: 02/12/19 Attending physician: DICK RASMUSSEN 02/08/19 15:34 Consult to Cardiology [CONS] Routine Consulting Provider: CLAUDIA PARRA Reason For Exam: Diastolic CHF, Bradycardia 02/11/19 12:29 Physical Therapy Evaluation and Treat [CONS] Routine Comment: Reason For Exam: placement Primary care physician: DIRECTOR OF LABOR RELATIONS Hospitalization Condition: Stable Hospital course: 73 yr old male patient with multiple medical problems was found to by family members to have low blood pressure this morning. EMS notified, and upon arrival the patient was found to be hypotensive with systolic blood pressure of 68 mmhg, as well as bradycardia with heart rate in the 40's. Pt seen and evaluated in ED and found to have the aforementioned symptoms as was treated with Atropine by ED physician. Pt symptoms improved with therapy. Pt acknowledges dypsnea on exertion, dypsnea at rest, decreased exercise, Evaluated by cardiology. Discharge diagnosis: /Diastolic CHF Preserved EF on 2d echo continue current diuretics regimen, avoid BB for bradycardia Cardiology eval noted and appreciated will cont outpt f/u / Severe malnutrition Encourage increased protein intake, dietary supplementation. supportive care / Elevated LFTs CT Abdomen/Pelvis showed enlarged prostate no other abnormality noted, negative hepatitis pannel, will do further outpt f/u / Bradycardia, due to meds S/P atropine in ED, supportive care, admit to telemetry, off clonidine / Hypotension, resolved / Urticaria topical benadryl, supportive care / HTN, elevated, placed on norvasc and Hctz /Physical debility, PT consulted /DVT prophylaxis SCD to BLE while in bed, Disposition: Discharge home with Hospitalist Physical General appearance: Present: no acute distress, cachectic, disheveled - EENT Eyes: Present: PERRL, EOM intact - Neck Neck: Present: supple, normal ROM - Respiratory Respiratory effort: normal Respiratory: bilateral: diminished, rales, negative: rhonchi, wheezing - Cardiovascular Rhythm: regular Heart Sounds: Present: S1 & S2 - Extremities Extremities: no ischemia, No edema - Abdominal General gastrointestinal: soft, non-tender, non-distended, normal bowel sounds - Integumentary Integumentary: Present: clear, warm - Psychiatric Psychiatric: appropriate mood/affect, cooperative - Neurologic Neurologic: moves all extremities Disposition: [id number] HOME [facility] Time spent for discharge: 34 minutes Core Measure Documentation - Palliative Care Palliative Care/ Comfort Measures: Not Applicable - Core Measures Any of the following diagnoses?: none Exam - Constitutional Vitals: Temp Pulse Resp BP Pulse Ox 97.7 F 79 18 105/51 96 02/11/19 09:31 02/11/19 09:31 02/11/19 11:00 02/11/19 09:31 02/11/19 11:00 Plan Activity: fall precautions Weight Bearing Status: Non-Weight Bearing Diet: low fat, low salt Follow up with: PRIMARY CAREMD [Primary Care Provider] - 3-5 Days TIERRA ZIMMER MD [Staff Physician] - 7 Days Prescriptions: Aspirin [Aspirin BABY CHEW TAB] 81 mg PO QDAY #30 tab.chew hydroCHLOROthiazide [HCTZ] 25 mg PO QDAY #30 tablet amLODIPine [Norvasc] 10 mg PO QDAY #30 tablet
[2019-02-11] MEDS: NORVASC PO SCH (14:23)
[2019-02-11] MEDS: SODIUM CHLORIDE FLUSH SYRINGE 10 ML IV SCH ×2 (14:23→21:31)
[2019-02-11] MEDS: HCTZ PO SCH (14:23)
--- NOTE | 2019-02-11 14:46 | Progress Note ---
Assessment and Plan Hypotension -resolved Marked Sinus bradycardia - resolved TSH WNL clonidine 0.2mg has been discontinued Drug reaction to hydralazine Recommendations: Continue current management Discontinue hydralazine No further cardic work-up is needed (Bradycardia has resolved) Subjective Date of service: 02/11/19 Principal diagnosis: Bradycardia Interval history: Tele is showing sinus tachycardia Patient is complaining of itching thought to be an allergic reaction to hydralazine Objective Vital Signs Temp Pulse Resp BP Pulse Ox 02/11/19 14:23 82 140/78 02/11/19 11:00 18 96 02/11/19 09:31 97.7 F 79 12 105/51 96 02/11/19 05:57 72 134/67 02/11/19 03:52 98.0 F 71 20 134/67 95 02/11/19 03:42 82 02/10/19 23:14 98.0 F 62 18 113/48 98 02/10/19 21:56 67 167/69 02/10/19 20:17 69 02/10/19 19:21 98.0 F 55 L 20 167/69 97 02/10/19 15:50 98.4 F 49 L 18 177/68 100 - Physical Examination HEENT: Positive: PERRL Neck: Positive: trachea midline Cardiac: Positive: Reg Rate and Rhythm Lungs: Positive: Normal Exam Neuro: Positive: Grossly Intact Abdomen: Positive: Soft Extremities: Absent: edema
[2019-02-11] MEDS: NACL 0.9% 1000 ML 1,000 ML IV SCH (18:34)
[2019-02-11] MEDS ORDERED: SINGULAIR PO SCH (22:00)
[2019-02-12 08:06] VITALS: BP 107/72
--- NOTE | 2019-02-12 08:57 | Progress Note ---
Assessment and Plan /Diastolic CHF Preserved EF on 2d echo continue current medications Cardiology eval noted and appreciated / Severe malnutrition Encourage increased protein intake, dietary supplementation. supportive care / Elevated LFTs CT Abdomen/Pelvis showed enlarged prostate no other abnormality noted, negative hepatitis pannel, will do further outpt f/u / Bradycardia, due to meds S/P atropine in ED, supportive care, admit to telemetry, off clonidine / Hypotension, resolved / Urticaria topical benadryl, supportive care / HTN, elevated, placed on norvasc and Hctz /DVT prophylaxis SCD to BLE while in bed, Disposition: Discharge home with HH Monitor closely and adjust the management as needed Disposition: Discharge when clears by PT Brief History; 73 yr old male patient with multiple medical problems was found to by family members to have low blood pressure this morning. EMS notified, and upon arrival the patient was found to be hypotensive with systolic blood pressure of 68 mmhg, as well as bradycardia with heart rate in the 40's. Pt seen and evaluated in ED and found to have the aforementioned symptoms as was treated with Atropine by ED physician. Pt symptoms improved with therapy. Pt acknowledges dypsnea on exertion, dypsnea at rest, decreased exercise, Evaluated by cardiology. Hospitalist Physical General appearance: Present: no acute distress, cachectic, - EENT Eyes: Present: PERRL, EOM intact - Neck Neck: Present: supple, normal ROM - Respiratory Respiratory effort: normal Respiratory: bilateral: diminished, rales, negative: rhonchi, wheezing - Cardiovascular Rhythm: regular Heart Sounds: Present: S1 & S2 - Extremities Extremities: no ischemia, No edema - Abdominal General gastrointestinal: soft, non-tender, non-distended, normal bowel sounds - Integumentary Integumentary: Present: clear, warm - Psychiatric Psychiatric: appropriate mood/affect, cooperative - Neurologic Neurologic: moves all extremities Subjective Date of service: 02/12/19 Principal diagnosis: Bradycardia Interval history: Patient seen and examined BP stable, but did poorly with PT d/c hold because patient was not cleared by PT Objective - Constitutional Vitals: Vital Signs - 12hr 02/11/19 02/11/19 02/12/19 22:16 23:12 03:51 Temperature 98.8 F 98.1 F Pulse Rate 72 69 Pulse Rate [ 73 Apical] Respiratory 18 18 16 Rate Blood Pressure 142/81 128/69 O2 Sat by Pulse 96 98 96 Oximetry 07/27/19 08:05 Temperature 97.0 F L Pulse Rate 62 Pulse Rate [ Apical] Respiratory 16 Rate Blood Pressure 107/72 O2 Sat by Pulse 99 Oximetry - Labs CBC & Chem 7: 02/08/19 11:23 02/10/19 04:35
[2019-02-12] MEDS: HCTZ PO SCH (09:55)
[2019-02-12] MEDS: NORVASC PO SCH (09:55)
[2019-02-12] MEDS: PEPCID PO SCH (09:55)
[2019-02-12] MEDS: SODIUM CHLORIDE FLUSH SYRINGE 10 ML IV SCH (09:57)
== END 2019-02-12 16:00 | disposition home health service (06) | DRG 291 ==
LOC: ED 10:50 → 4A 13:48
PROVIDERS: ADMIT Internal Medicine; ATTEND Internal Medicine
DX: I11.0 Hypertensive heart disease with heart failure (principal); I50.31 Acute diastolic (congestive) heart failure; E43 Unspecified severe protein-calorie malnutrition; Z68.1 Body mass index [BMI] 19.9 or less, adult; I95.9 Hypotension, unspecified; L50.9 Urticaria, unspecified; R00.1 Bradycardia, unspecified; N40.0 Benign prostatic hyperplasia without lower urinary tract symptoms; T50.995A Adverse effect of other drugs, medicaments and biological substances, initial encounter; G62.9 Polyneuropathy, unspecified; J44.9 Chronic obstructive pulmonary disease, unspecified; Z71.3 Dietary counseling and surveillance; Y92.89 Other specified places as the place of occurrence of the external cause; Z82.49 Family history of ischemic heart disease and other diseases of the circulatory system; Z79.899 Other long term (current) drug therapy
CPT/HCPCS: 36415; 71045; 74177; 80048; 80053; 80074; 80320; 81001; 82140; 82805; 82962; 83735; 83880; 84154; 84439; 84443; 84484; 85025; 85610; 87040; 87086; 87116; 93005; 93010; 93306; 96361; 96374; 96375; 99406; G0378; G0480; J0360; J0461; J1200; J2930; J7030; Q0177; Q9967

== ENCOUNTER 2021-02-15 15:15 | Emergency (ER) | payer MEDICARE ==
--- NOTE | 2021-02-15 17:25 | Emergency Department Report ---
- General Chief complaint: Medical Clearance Stated complaint: STARTED NEW BP MED/NOT FEELING WELL Time Seen by Provider: 02/15/21 17:18 Source: EMS Mode of arrival: Stretcher Limitations: Language Barrier - History of Present Illness Initial comments: Chief complaint: "I feel much better now. The medicine made me sick." I used Didatuanese language line grid molder to obtain history and provide instructions. HPI: This is a 75-year-old male with history of hypertension, diastolic CHF, sick sinus syndrome, herpes zoster's who presents with generalized malaise and burning sensation after taking hydralazine 50 mg tablets. Patient has a bottle of hydralazine tablets instructed to take three times a day. After 2 hours of observation emergency department, patient is symptom-free. He denies syncope, headache, chest pain, shortness of breath, paralysis. History taken from patient and EMS written report. According to EMS written report, patient has not been feeling well since starting blood pressure medication. Documented blood pressure 92/56 per EMS. Repeat blood pressure 108/56. According to electronic medical record patient was recently admitted to this [facility] this month. Patient was discharged 3 days ago on February 11. Patient was being evaluated for bradycardia diastolic CHF. Patient presented on February 08. Family members noted low blood pressure at that time. During previous EMS transport on the , patient had hypotension with systolic blood pressure 68 mmHg. Patient also had bradycardia. According to discharge summary: Patient was discharged with prescriptions for amlodipine 10 mg/day as well as hydrochlorothiazide 25 mg/day. Patient denies pain shortness of breath or syncope. MD Complaint: generalized weakness -: Gradual, days(s) (1 day) Location: generalized Severity: mild Consistency: constant Improves with: none Worsens with: none Context: new medication Associated Symptoms: denies other symptoms - Related Data Home Medications Medication Instructions Recorded Confirmed Last Taken Triamcinolone 0.1% [Kenalog 0.1% 1 - 2 applic TP PRN PRN 02/08/19 02/08/19 CREAM] Singulair 10 mg PO DAILY 02/09/19 02/09/19 02/08/19 08:00 Previous Rx's Medication Instructions Recorded Last Taken Type Aspirin [Aspirin BABY CHEW TAB] 81 mg PO QDAY #30 tab.chew 02/11/19 Unknown Rx amLODIPine 10 mg PO QDAY #30 tablet 02/11/19 Unknown Rx hydroCHLOROthiazide [HCTZ] 25 mg PO QDAY #30 tablet 02/11/19 Unknown Rx Allergies Allergy/AdvReac Type Severity Reaction Status Date / Time No Known Allergies Allergy Verified 03/26/18 10:35 ED Review of Systems ROS: Stated complaint: STARTED NEW BP MED/NOT FEELING WELL Other details as noted in HPI Comment: All other systems reviewed and negative Constitutional: denies: fever, malaise Respiratory: denies: cough, shortness of breath Cardiovascular: denies: chest pain Gastrointestinal: denies: abdominal pain, nausea, vomiting Neurological: denies: headache ED Past Medical Hx - Past Medical History Previous Medical History?: Yes Hx Hypertension: Yes Additional medical history: glaucoma, COPD, peripheral neuropathy - Surgical History Past Surgical History?: Yes Additional Surgical History: back surgery - Social History Smoking Status: Former Smoker Substance Use Type: None - Medications Home Medications: Home Medications Medication Instructions Recorded Confirmed Last Taken Type Triamcinolone 0.1% [Kenalog 0.1% 1 - 2 applic TP PRN PRN 02/08/19 02/08/19 02/08/19 History CREAM] Singulair 10 mg PO DAILY 02/09/19 02/09/19 02/08/19 08:00 History Aspirin [Aspirin BABY CHEW TAB] 81 mg PO QDAY #30 tab.chew 02/11/19 Unknown Rx amLODIPine 10 mg PO QDAY #30 tablet 02/11/19 Unknown Rx hydroCHLOROthiazide [HCTZ] 25 mg PO QDAY #30 tablet 02/11/19 Unknown Rx ED Physical Exam - General Limitations: Language Barrier General appearance: alert, in no apparent distress, other (Appears well, nontoxic appearing, no acute distress) - Head Head exam: Present: atraumatic, normocephalic - Eye Eye exam: Present: normal appearance - ENT ENT exam: Present: mucous membranes moist - Neck Neck exam: Present: normal inspection, full ROM - Respiratory Respiratory exam: Present: normal lung sounds bilaterally. Absent: respiratory distress, wheezes, rales, rhonchi - Cardiovascular Cardiovascular Exam: Present: regular rate, normal rhythm, normal heart sounds. Absent: systolic murmur, diastolic murmur, rubs, gallop - GI/Abdominal GI/Abdominal exam: Present: soft, normal bowel sounds. Absent: distended, tenderness, guarding, rebound - Rectal Rectal exam: Present: deferred - Extremities Exam Extremities exam: Present: normal inspection - Neurological Exam Neurological exam: Present: alert, oriented X3 - Psychiatric Psychiatric exam: Present: normal mood, flat affect - Skin Skin exam: Present: warm, dry, intact, normal color. Absent: rash ED Medical Decision Making - Medical Decision Making Hypotension, due to medication adverse effect. No indication of hemorrhage or sepsis or cardiogenic shock. Patient is ambulatory and appears well. Patient is currently symptom-free. He does not have any symptoms while normotensive. Patient will hold all blood pressure medications until he is evaluated by his primary physician. He is discharged home in stable improved condition. I provided discharge education and instructions using [place] [employer] Code language line interpretation. Critical care attestation.: If time is entered above; I have spent that time in minutes in the direct care of this critically ill patient, excluding procedure time. ED Disposition Clinical Impression: Hypotension, Medication adverse effect Disposition: [id number] TO HOME OR SELFCARE Is pt being admited?: No Does the pt Need Aspirin: No Condition: Stable Instructions: Hypotension, [id number] Additional Instructions: Vui lng khng dng b?t k? lo?i vanessa?c mary?t p no cho ??n khi b?n ???c bc s? chnh ?nh gi. Referrals: EMMANUEL JACOBS [Other] - 3-5 Days
[2021-02-15 18:00] VITALS: BP 139/92
== END 2021-02-15 18:15 | disposition home or self-care (01) ==
LOC: ED 15:15
DX: I95.9 Hypotension, unspecified (principal); T50.995A Adverse effect of other drugs, medicaments and biological substances, initial encounter; I10 Essential (primary) hypertension; H40.9 Unspecified glaucoma; G62.9 Polyneuropathy, unspecified; Z98.890 Other specified postprocedural states; Y92.89 Other specified places as the place of occurrence of the external cause
CPT/HCPCS: 99283